=== PATIENT | male | born 1940 | race Caucasian/White ===

== ENCOUNTER → 2018-05-15 13:45 | Outpatient (CLI) | payer MEDICARE, SELFPAY ==
--- NOTE | 2018-05-15 08:00 | DI.ECHO.S_ITS ---
Echocardiogram Report + + :Name: SAMUEL SHAW Study Date: 05/15/2018 Height: 67 in : :[facility] Weight: 175 lb : : Gender: Male BSA: 1.9 m2 : :: 1940 Age: 78 yrs BP: 160/70 mmHg: :Reason For Study: afib : : Performed By: Sarah David : :Referring: MELODIE DUVAL : + + Interpretation Summary The left ventricle is normal in size. The ejection fraction is estimated to be 60-65%. Flattened septum is consistent with RV volume overload. The right ventricle is moderately dilated. Right ventricular systolic function is at the lower limits of normal. Both atria are severely dilated. There is moderate tricuspid regurgitation. The right ventricular systolic pressure is estimated to be at least 35 mmHg based on an estimated right atrial pressure of 8 mm Hg. The ascending aorta is mildly enlarged. Procedure: A two-dimensional transthoracic echocardiogram with color flow and Doppler was performed. The study quality was technically adequate. There is no prior echocardiogram noted for this patient. The heart rate ranged between 53-67 bpm during the study. The patient was in atrial fibrillation with heart rates between 53-57 bpm during the exam. Left Ventricle: The left ventricle is normal in size. There is normal left ventricular wall thickness. There is no thrombus. The ejection fraction is estimated to be 60-65%. Flattened septum is consistent with RV volume overload. Diastolic function could not be accurately assessed due to atrial fibrillation. Right Ventricle: The right ventricle is moderately dilated. Right ventricular systolic function is at the lower limits of normal. Atria: Both atria are severely dilated. There is no Doppler evidence for an interatrial shunt. Mitral Valve: There is mild mitral annular calcification. There is mild mitral regurgitation. Aortic Valve: The aortic valve is trileaflet. There is mild aortic valve sclerosis. There is no aortic valve stenosis. There is trace aortic regurgitation. Tricuspid Valve: The tricuspid valve leaflets are thin and pliable. There is moderate tricuspid regurgitation. The right ventricular systolic pressure is estimated to be at least 35 mmHg based on an estimated right atrial pressure of 8 mm Hg. Pulmonic Valve: The pulmonic valve leaflets are thin and pliable; valve motion is normal. There is trace pulmonic regurgitation. Great Vessels: The aortic root is mildly dilated. The ascending aorta is mildly enlarged. The aortic arch is normal in size. The pulmonary artery is normal size. The IVC is dilated (diameter is greater than 2.1 cm) yet it collapses greater than 50% with a sniff. This suggests a right atrial pressure of 8 mm Hg. Pericardium/ Pleura There is no pericardial effusion. There is no pleural effusion. MMode/2D Measurements & Calculations LVIDd: 5.6 cm LVOT diam: 2.1 cm LVIDs: 3.8 cm Ao root diam: 4.1 cm FS: 32.0 % asc Aorta Diam: 3.7 cm IVSd: 0.94 cm Ao Arch Diam (distal): 3.0 cm LVPWd: 0.92 cm LV bojorquez. diameter/BSA (cm/m^2): 2.9 LV sys. diameter/BSA (cm/m^2): 2.0 LA A2 area: 34.2 cm2 RA long axis: 7.9 cm LA A4 area: 30.8 cm2 RA area: 41.5 cm2 LA length (vol): 7.1 cm RA vol: 184.0 ml LA vol: 126.1 ml RA : 96.3 ml/m2 LA vol index: 66.0 ml/m2 IVC diam: 2.3 cm RVD1 (basal): 4.0 cm TAPSE: 1.6 cm Doppler Measurements & Calculations Ao V2 max: 97.8 cm/sec LVOT Max Sherif: 73.8 cm/sec Ao V2 mean: 70.9 cm/sec LV V1 max P.2 mmHg Ao max P.8 mmHg LV V1 VTI: 14.7 cm Ao mean P.2 mmHg WEI(I,D): 2.8 cm2 Ao V2 VTI: 18.8 cm WEI(V,D): 2.7 cm2 sev ratio: 0.79 EWI indexed to BSA (cm^2/m^2): 1.5 MV E max sherif: 75.3 cm/sec TR max sherif: 257.6 cm/sec MV dec time: 0.15 sec TR max P.5 mmHg SV(LVOT): 52.5 ml _ Reading Physician:PM
== END ==
PROVIDERS: PCP Family Medicine; Visit Provider Internal Medicine Cardiovascular Disease
DX: I08.1 Rheumatic disorders of both mitral and tricuspid valves (principal); I48.2 Chronic atrial fibrillation
CPT/HCPCS: 93306